=== PATIENT | female | born 1935 | race Two or more races ===

== ENCOUNTER 2017-09-01 11:17 | Outpatient (CLI) | payer OTHER | END 2017-09-01 11:34 | disposition home or self-care (01) | LOC: TOM 11:17 | DX: D63.1 Anemia in chronic kidney disease (principal); N18.4 Chronic kidney disease, stage 4 (severe); D51.3 Other dietary vitamin B12 deficiency anemia; R97.0 Elevated carcinoembryonic antigen [CEA]; E03.8 Other specified hypothyroidism; E78.4 Other hyperlipidemia; Z72.0 Tobacco use; I10 Essential (primary) hypertension; J44.9 Chronic obstructive pulmonary disease, unspecified; C73 Malignant neoplasm of thyroid gland ==

== ENCOUNTER 2017-09-03 07:13 | Inpatient (IN) | payer OTHER ==
[~2017-09-03] VITALS: Ht 149.9 cm; Wt 41.7 kg
[2017-09-03] MEDS ORDERED: ASA81 MG (07:44)
[2017-09-03] MEDS ORDERED: COZAAR25 MG (07:44)
== END 2017-09-04 21:54 | disposition left against medical advice (07) | DRG 378 ==
LOC: ER 07:13 → SEC-K 12:23 → MEDI 12:23
PROC: 30233N1 Transfusion of Nonautologous Red Blood Cells into Peripheral Vein, Percutaneous Approach (ICD-10-PCS; principal; 2017-09-03)
PROC: BW21YZZ Computerized Tomography (CT Scan) of Abdomen and Pelvis using Other Contrast (ICD-10-PCS; 2017-09-03)
DX: K92.2 Gastrointestinal hemorrhage, unspecified (principal); N18.4 Chronic kidney disease, stage 4 (severe); D62 Acute posthemorrhagic anemia; D63.1 Anemia in chronic kidney disease; I13.10 Hypertensive heart and chronic kidney disease without heart failure, with stage 1 through stage 4 chronic kidney disease, or unspecified chronic kidney disease; J44.9 Chronic obstructive pulmonary disease, unspecified; E03.8 Other specified hypothyroidism; F17.210 Nicotine dependence, cigarettes, uncomplicated

== ENCOUNTER 2018-03-30 14:13 | Emergency (ER) | payer OTHER ==
[~2018-03-30] VITALS: Ht 157.5 cm; Wt 39.5 kg
[~2018-03-30 14:13] MED LIST: ASA81 MG; COZAAR25 MG
[2018-03-30] MEDS ORDERED: GLUCOSAMINE &1 EACH (14:40)
[2018-03-30] MEDS ORDERED: LEVOTHYROXINE112 MCG (14:40)
== END 2018-03-31 11:34 | disposition home or self-care (01) ==
LOC: ER 14:13
DX: K29.60 Other gastritis without bleeding (principal); E86.0 Dehydration; R63.0 Anorexia; R12 Heartburn; B34.9 Viral infection, unspecified; J09.X2 Influenza due to identified novel influenza A virus with other respiratory manifestations; T36.3X5A Adverse effect of macrolides, initial encounter; Y92.89 Other specified places as the place of occurrence of the external cause

== ENCOUNTER 2018-04-17 13:20 | Inpatient (IN) | payer OTHER ==
[~2018-04-17] VITALS: Ht 149.9 cm; Wt 40.8 kg
[~2018-04-17 13:20] MED LIST changes: +GLUCOSAMINE &1 EACH; +LEVOTHYROXINE112 MCG
[2018-04-20] MEDS ORDERED: LEVOTHYROXINE112 MCG PO (12:17)
[2018-04-20] MEDS ORDERED: COZAAR25 MG PO (12:17)
[2018-04-20] MEDS ORDERED: PANTOPRAZOLE SO40 MG PO (12:17)
[2018-04-20] MEDS ORDERED: NEURONTIN300 MG PO (12:17)
[2018-04-20] MEDS ORDERED: CYMBALTA30 MG PO (12:17)
== END 2018-05-18 20:00 | disposition expired | DRG 811 ==
LOC: ER 13:20 → MEDI 17:44 → ICU 04-24 04:19 → MEDJ 05-02 01:51
PROVIDERS: ADMIT Internal Medicine Geriatric Medicine
PROC: 30233N1 Transfusion of Nonautologous Red Blood Cells into Peripheral Vein, Percutaneous Approach (ICD-10-PCS; 2018-04-17)
PROC: BW21ZZZ Computerized Tomography (CT Scan) of Abdomen and Pelvis (ICD-10-PCS; 2018-04-17)
PROC: CD271ZZ Tomographic (Tomo) Nuclear Medicine Imaging of Gastrointestinal Tract using Technetium 99m (Tc-99m) (ICD-10-PCS; 2018-04-21)
PROC: 3E0F7GC Introduction of Other Therapeutic Substance into Respiratory Tract, Via Natural or Artificial Opening (ICD-10-PCS; 2018-04-22)
PROC: 4A033R1 Measurement of Arterial Saturation, Peripheral, Percutaneous Approach (ICD-10-PCS; 2018-04-22)
PROC: 4A12X4Z Monitoring of Cardiac Electrical Activity, External Approach (ICD-10-PCS; 2018-04-22)
PROC: B246ZZZ Ultrasonography of Right and Left Heart (ICD-10-PCS; 2018-04-23)
PROC: 0BH17EZ Insertion of Endotracheal Airway into Trachea, Via Natural or Artificial Opening (ICD-10-PCS; 2018-04-24)
PROC: 5A1955Z Respiratory Ventilation, Greater than 96 Consecutive Hours (ICD-10-PCS; 2018-04-24)
PROC: 8E0ZXY6 Isolation (ICD-10-PCS; 2018-04-27)
PROC: 05H633Z Insertion of Infusion Device into Left Subclavian Vein, Percutaneous Approach (ICD-10-PCS; 2018-04-27)
PROC: B54MZZZ Ultrasonography of Right Upper Extremity Veins (ICD-10-PCS; 2018-04-30)
PROC: BW25ZZZ Computerized Tomography (CT Scan) of Chest, Abdomen and Pelvis (ICD-10-PCS; 2018-05-04)
PROC: 0W9B30Z Drainage of Left Pleural Cavity with Drainage Device, Percutaneous Approach (ICD-10-PCS; principal; 2018-05-05)
DX: D62 Acute posthemorrhagic anemia (principal); J69.0 Pneumonitis due to inhalation of food and vomit; A41.89 Other specified sepsis; R65.21 Severe sepsis with septic shock; J95.821 Acute postprocedural respiratory failure; B37.1 Pulmonary candidiasis; J95.811 Postprocedural pneumothorax; N18.4 Chronic kidney disease, stage 4 (severe); B02.23 Postherpetic polyneuropathy; J90 Pleural effusion, not elsewhere classified; B37.49 Other urogenital candidiasis; T22.511A Corrosion of first degree of right forearm, initial encounter; I13.10 Hypertensive heart and chronic kidney disease without heart failure, with stage 1 through stage 4 chronic kidney disease, or unspecified chronic kidney disease; J44.9 Chronic obstructive pulmonary disease, unspecified; D63.1 Anemia in chronic kidney disease